=== PATIENT | male | born 1965 | race Caucasian/White ===

== ENCOUNTER → 2016-06-14 | Outpatient (CLI) | payer MEDICAID ==
[2016-06-14 11:15] LABS: CH 33.2; CHCM 35.1; HCT 48.6 % (39.0-53.0); HDW 2.93; HGB 16.3 gm/dL (13.0-17.5); MCH 31.9 pg (25.0-35.0); MCHC 33.6 g/dL (31.0-37.0); Mean Platelet Volume 8.5; RBC 5.11 m/uL (4.30-5.90); RDW 13.4 % (11.5-15.5); WBC 5.3 k/uL (3.8-10.6)
[2016-06-14 11:19] LABS: ALT 59 U/L (21-72); AST 30 U/L (17-59); Alkaline Phosphatase 72 U/L (38-126); Anion Gap 10 mmol/L; Blood Urea Nitrogen 14 mg/dL (9-20); Calcium 9.5 mg/dL (8.4-10.2); Carbon Dioxide 27 mmol/L (22-30); Chloride 106 mmol/L (98-107); Glucose 114 mg/dL (74-99); Non-African American GFR(MDRD) >60 (>60 ml/min/1.73 sqM); Potassium 4.4 mmol/L (3.5-5.1); Sodium 143 mmol/L (137-145); Total Bilirubin 0.6 mg/dL (0.2-1.3); Total Protein 7.5 g/dL (6.3-8.2)
[2016-06-14 13:22] LABS: Hemoglobin A1C 5.8 % (4.2-6.1)
== END | disposition home or self-care (01) ==
LOC: LABWHC1 10:44
PROVIDERS: ATTEND Family Medicine
DX: R00.1 Bradycardia, unspecified (principal); R53.83 Other fatigue
CPT/HCPCS: 36415; 80053; 83036; 83880; 84439; 84443; 84681; 85027

== ENCOUNTER → 2016-06-21 | Outpatient (CLI) | payer MEDICAID ==
[~2016-06-21] MED LIST: REGADENOSON 0.4 MG/5 ML SYRINGE IV NR; REGADENOSON 0.4 MG/5 ML SYRINGE IV ONE
--- NOTE | 2016-06-21 11:07 | NM ---
EXAMINATION TYPE: NM stress lexiscan cardiolite DATE OF EXAM: 06/21/2016 10:25 AM COMPARISON: NONE HISTORY: Precordial chest pain and abnormal EKG TECHNIQUE: After the intravenous administration of 10.34 mCi Tc 99m Sestamibi - Cardiolite resting S PECT images acquired 45 minutes post injection. The patient received 0.4mg Lexiscan, 27.2 mCi Tc 99m Sestamibi - Stress images obtained [address] injection FINDINGS: Review of stress and rest SPECT images demonstrates no distinct perfusion abnormality. Gated analysi s shows normal wall motion with an estimated left ventricular ejection fraction of 62 %. IMPRESSION: No scintigraphic evidence for reversible ischemia.
--- NOTE | 2016-06-21 12:27 | EST ---
DATE OF SERVICE: 06/21/2016 AGE: 50Y SEX: M HT: 6'2" WT: 250 lbs. Lexiscan Cardiolite Stress Test *Heart Rate Blood Pressure *Rest: 65 Rest: 129/86 * *Max. Achieved: 96 Maximum BP: 150/85 85% PMHR: 145 100% PMHR: 171 *METS: - INDICATIONS: Chest pain. MEDICATIONS: - The patient was given Lexiscan injection over the period of 15 seconds. Peak heart rate of 96 was achieved. Maximum blood pressure of 150/85 mmHg was noted. Resting EKG shows normal sinus rhythm with normal SC interval and QRS duration and normal ST-T waves. No ST segment depression suggestive of ischemia is noted. The results of the nuclear study will follow.
== END | disposition home or self-care (01) ==
LOC: RADNMMAIN 08:02
PROVIDERS: ATTEND Family Medicine
DX: R00.1 Bradycardia, unspecified (principal)
CPT/HCPCS: 93017; 78452; A9500; J2785

== ENCOUNTER → 2016-11-29 | Outpatient (CLI) | payer MEDICAID ==
[2016-11-29 08:30] LABS: Hemoglobin A1C 5.8 % (4.2-6.1)
== END | disposition home or self-care (01) ==
LOC: LABWHC1 06:48
PROVIDERS: ATTEND Family Medicine
DX: R73.03 Prediabetes (principal)
CPT/HCPCS: 36415; 83036

== ENCOUNTER → 2017-12-16 | Day surgery (SDC) | payer MEDICAID ==
[2017-12-15 12:08] VITALS: BMI 31.1
[~2017-12-16] MED LIST changes: +LACTATED RINGERS 1,000 ML IV SCH; +LIDOCAINE 1% 20 ML VIAL (10MG/ML) FOR IV START INTRADERMA PRN; +MIDAZOLAM 2 MG/2 ML VIAL ONE; +PROPOFOL 10 MG/ML 20 ML VIAL IV ONE; -REGADENOSON 0.4 MG/5 ML SYRINGE IV NR; -REGADENOSON 0.4 MG/5 ML SYRINGE IV ONE
[2017-12-16 08:10] VITALS: RESP 16; TEMP 97.9
--- NOTE | 2017-12-16 09:11 | P.PCN ---
Date of Procedure: 12/16/17 Procedure(s) Performed: BRIEF HISTORY: Patient is a 52-year-old pleasant white male, scheduled for an elective colonoscopy as a part of screening for colon neoplasia. PROCEDURE PERFORMED: Colonoscopy. PREOPERATIVE DIAGNOSIS: Screening for colon cancer. IV sedation per Anesthesia. PROCEDURE: After informed consent was obtained, the patient, was brought into the endoscopy unit. IV sedation was administered by Anesthesia under continuous monitoring. Digital rectal examination was normal. Initially the Olympus CF- 160 flexible video colonoscope was then inserted in the rectum, gradually advanced into the cecum without any difficulty. Careful examination was performed as the scope was gradually being withdrawn. Ileocecal valve and the appendiceal orifice were visualized and appeared normal. Prep was excellent. Mucosa of the cecum, ascending colon, transverse colon, descending colon, sigmoid colon, and rectum appeared normal. Retroflexion was performed in the rectum and no lesions were seen. The patient tolerated the procedure well. IMPRESSION: Normal-appearing colon from rectum to cecum with no evidence of colorectal neoplasia. RECOMMENDATIONS: Findings of this examination were discussed with the patient as well as his family. He was advised to have a repeat screening colonoscopy in 10 years.
[2017-12-16 09:22] VITALS: BP 123/78; PULSE 70
== END | disposition home or self-care (01) ==
LOC: ORWHC2ENDO 07:50
PROVIDERS: ATTEND Internal Medicine Gastroenterology
DX: Z12.11 Encounter for screening for malignant neoplasm of colon (principal); K21.9 Gastro-esophageal reflux disease without esophagitis; J44.9 Chronic obstructive pulmonary disease, unspecified; Z79.82 Long term (current) use of aspirin; Z79.899 Other long term (current) drug therapy; Z87.891 Personal history of nicotine dependence
CPT/HCPCS: 45378; J2250; J2704

== ENCOUNTER → 2020-01-14 | Outpatient (CLI) | payer MEDICAID ==
[2020-01-14 07:43] LABS: HCT 47.7 % (39.0-53.0); HGB 15.6 gm/dL (13.0-17.5); MCH 30.9 pg (25.0-35.0); MCHC 32.8 g/dL (31.0-37.0); MCV 94.4 fL (80.0-100.0); Mean Platelet Volume 8.3; Platelet Count 144 k/uL (150-450); RBC 5.05 m/uL (4.30-5.90); RDW 13.2 % (11.5-15.5); WBC 4.6 k/uL (3.8-10.6)
[2020-01-14 07:51] LABS: Appearance,Urine Clear (Clear); Bilirubin,Urine Negative (Negative); Blood,Urine Negative (Negative); Color,Urine Yellow; Glucose,Urine (UA) Negative (Negative); Ketones,Urine Negative (Negative); Leukocyte Esterase,Urine Negative (Negative); Nitrite,Urine Negative (Negative); Protein,Urine Negative (Negative); Specific Gravity,Urine 1.016 (1.001-1.035); Urobilinogen,Urine <2.0 mg/dL (<2.0)
[2020-01-14 10:09] LABS: African American GFR (CKD) 112.6 (60.0-200.0); Albumin 4.1 g/dL (3.80-4.90); Albumin/Globulin Ratio 2.05 (1.60-3.17); Anion Gap 6.6 mmol/L (4.00-12.00); BUN/Creat Ratio 17.78 Ratio (12.00-20.00); Calcium 9.2 mg/dL (8.7-10.3); Carbon Dioxide 30.4 mmol/L (21.6-31.8); Chol/HDL Ratio 4.12; LDL Cholesterol,Calculated 115.2 mg/dL (0.0-131.0); Non-African American GFR(CKD) 97.2 (60.0-200.0); Potassium 4.3 mmol/L (3.5-5.5); Total Bilirubin 0.5 mg/dL (0.2-1.2); Total Protein 6.1 g/dL (6.2-8.2); VLDL Calculation 18.8 mg/dL (5.00-40.00)
[2020-01-14 10:18] LABS: Prostate Specific Antigen 0.5 ng/mL (0.0-3.5)
== END | disposition home or self-care (01) ==
LOC: LABWHC1 07:13
PROVIDERS: ATTEND Family Medicine
DX: R06.00 Dyspnea, unspecified (principal); N52.9 Male erectile dysfunction, unspecified
CPT/HCPCS: 36415; 80053; 80061; 81003; 83036; 84153; 84439; 84443; 85027

== ENCOUNTER 2020-11-18 07:32 | Emergency (ER) | payer MEDICAID ==
[2020-11-18 07:46] VITALS: RESP 18
--- NOTE | 2020-11-18 08:33 | ED ---
Recheck HPI - General Chief Complaint: Recheck/Abnormal Lab/Rx Stated Complaint: fever, no appetite Time Seen by Provider: 11/18/20 07:56 Source: patient, RN notes reviewed Mode of arrival: ambulatory Limitations: no limitations - History of Present Illness Initial Comments: This is a 55-year-old male who presents with complaints of 2 days of headache a smoker's cough and fevers along with chills. He did hit the fall complement of [place] he is concerned he may have developed the delta variant. He does state he has a cough that is smoker's cough no overt phlegm no earaches or throat some clear rhinorrhea. Frontal headache he gets worse with cough and now is positional changes. - Related Data Home Medications Medication Instructions Recorded Confirmed Montelukast [Singulair] 10 mg PO HS 12/15/17 11/18/20 Omeprazole 20 mg PO HS 12/15/17 11/18/20 Tadalafil [Cialis] 5 mg PO HS 12/15/17 11/18/20 Zolpidem [Ambien] 5 mg PO HS 11/18/20 11/18/20 Previous Rx's Medication Instructions Recorded Amoxicillin/Potassium Clav 1 tab PO Q12HR 1 Days #20 tab 11/18/20 [Augmentin 875-125 Tablet] Ibuprofen 800 mg PO Q6HR PRN #20 tablet 11/18/20 Allergies Allergy/AdvReac Type Severity Reaction Status Date / Time No Known Allergies Allergy Verified 11/18/20 08:38 Review of Systems ROS Statement: Those systems with pertinent positive or pertinent negative responses have been documented in the HPI. ROS Other: All systems not noted in ROS Statement are negative. Past Medical History Past Medical History: COPD, GERD/Reflux Additional Past Medical History / Comment(s): SEASONAL ALLERGIES, bph History of Any Multi-Drug Resistant Organisms: None Reported Past Surgical History: Orthopedic Surgery Additional Past Surgical History / Comment(s): TITANIUM ERICA LT KNEE TO ANKLE Past Anesthesia/Blood Transfusion Reactions: No Reported Reaction Past Psychological History: No Psychological Hx Reported Smoking Status: Vaper Past Alcohol Use History: Occasional Past Drug Use History: Marijuana - Past Family History Mother Family Medical History: No Reported History General Exam - General Exam Comments Initial Comments: This is a well-developed well-nourished awake alert oriented 3 male Limitations: no limitations General appearance: alert, in no apparent distress Head exam: Present: atraumatic, normocephalic, normal inspection Eye exam: Present: normal appearance, PERRL, EOMI. Absent: scleral icterus, conjunctival injection, periorbital swelling ENT exam: Present: mucous membranes moist, TM's normal bilaterally, other (Boggy nasal mucosa with some mild hyperemia) Neck exam: Present: normal inspection, full ROM, other (No stridor JVD or bruits). Absent: tenderness, meningismus, lymphadenopathy Respiratory exam: Present: normal lung sounds bilaterally. Absent: respiratory distress, wheezes, rales, rhonchi, stridor Cardiovascular Exam: Present: normal rhythm, tachycardia, normal heart sounds. Absent: systolic murmur, diastolic murmur, rubs, gallop, clicks GI/Abdominal exam: Present: soft, normal bowel sounds. Absent: distended, tenderness, guarding, rebound, rigid Extremities exam: Present: normal inspection, full ROM, normal capillary refill. Absent: tenderness, pedal edema, joint swelling, calf tenderness Back exam: Present: normal inspection Neurological exam: Present: alert, oriented X3, CN II-XII intact Psychiatric exam: Present: normal affect, normal mood Skin exam: Present: warm, dry, intact, normal color. Absent: rash Course Vital Signs 11/18/20 11/18/20 11/18/20 07:42 08:43 08:51 Temperature 100.7 F H 102.4 F H Pulse Rate 113 H 109 H Respiratory 18 18 18 Rate Blood Pressure 157/104 149/87 O2 Sat by Pulse 92 L 95 Oximetry Medical Decision Making - Medical Decision Making I did discuss findings with the patient is negative for evidence a viral infections please see the report patient will be discharged the presentation is consistent with a - Lab Data Lab Results 11/18/20 Range/Units 08:48 Influenza Type A (PCR) Not Detected (Not Detectd) Influenza Type B (PCR) Not Detected (Not Detectd) RSV (PCR) Not Detected (Not Detectd) SARS-CoV-2 (PCR) Not Detected (Not Detectd) - Radiology Data Radiology results: report reviewed (Imaging reviewed no acute findings), image reviewed Disposition Clinical Impression: Acute sinusitis, Febrile illness, acute Disposition: HOME SELF-CARE Condition: Good Instructions (If sedation given, give patient instructions): Rhinosinusitis (ED), Fever in Adults (ED) Prescriptions: Amoxicillin/Potassium Clav [Augmentin 875-125 Tablet] 1 tab PO Q12HR 1 Days #20 tab Ibuprofen 800 mg PO Q6HR PRN #20 tablet PRN Reason: Pain Is patient prescribed a controlled substance at d/c from ED?: No Referrals: Heath Cardoso MD [Primary Care Provider] - 1-2 days
[2020-11-18] MEDS ORDERED: ACETAMINOPHEN TAB 500 MG TAB PO STA (08:45)
--- NOTE | 2020-11-18 08:46 | XR ---
EXAMINATION TYPE: XR chest 2V DATE OF EXAM: 11/18/2020 COMPARISON: 03/03/2017 HISTORY: Fever and cough TECHNIQUE: Frontal and lateral views of the chest are obtained. FINDINGS: Left upper lobe pulmonary nodule is unchanged. Lungs are otherwise clear. Cardiac silhouette is not enlarged. IMPRESSION: No acute cardiopulmonary process.
[2020-11-18 10:40] VITALS: BP 149/65; PULSE 91; TEMP 98.5
== END 2020-11-18 10:40 | disposition home or self-care (01) ==
LOC: EC 07:32
DX: J01.90 Acute sinusitis, unspecified (principal); J44.9 Chronic obstructive pulmonary disease, unspecified; K21.9 Gastro-esophageal reflux disease without esophagitis; F17.290 Nicotine dependence, other tobacco product, uncomplicated; F12.90 Cannabis use, unspecified, uncomplicated; Z20.822 Contact with and (suspected) exposure to COVID-19
CPT/HCPCS: 71046; 87636; 99284

== ENCOUNTER 2022-09-10 06:20 | Day surgery (SDC) | payer BC, MEDICAID ==
[~2022-09-10 06:20] MED LIST changes: +ACETAMINOPHEN TAB 500 MG TAB PO PRN; +DEXAMETHASONE SOD PHOSPHATE 4 MG/ML 1 ML VIAL IV ONE; +HEPARIN SODIUM,PORCINE/PF 5,000 UNIT/0.5 ML SYRINGE SQ PRN; +HYDROmorphone 0.5 MG/0.5 ML SYRINGE IVP PRN; +LIDOCAINE 1% (10MG/ML) FOR IV START INTRADERMA PRN; -LIDOCAINE 1% 20 ML VIAL (10MG/ML) FOR IV START INTRADERMA PRN; +MIDAZOLAM 2 MG/2 ML VIAL IV PRN; -MIDAZOLAM 2 MG/2 ML VIAL ONE; +ONDANSETRON 4 MG/2 ML VIAL IVP ONE; -PROPOFOL 10 MG/ML 20 ML VIAL IV ONE; +Pre Op ABX Message 1 EACH MISC MISCELLANE ONE
[2022-09-10 06:41] VITALS: RESP 16
[2022-09-10 06:49] LABS: Glucose,Whole Blood 122 mg/dL (70-110)
[2022-09-10] MEDS ORDERED: ONDANSETRON 4 MG/2 ML VIAL ONE (06:50)
[2022-09-10] MEDS ORDERED: MIDAZOLAM 2 MG/2 ML VIAL ONE (07:19)
[2022-09-10] MEDS ORDERED: fentaNYL (PF) 50 MCG/ML 2 ML AMP ONE (07:19)
[2022-09-10] MEDS ORDERED: KETOROLAC 15 MG/ML 1 ML VIAL ONE (07:19)
[2022-09-10] MEDS ORDERED: PROPOFOL 10 MG/ML 20 ML VIAL IV ONE (07:19)
[2022-09-10] MEDS ORDERED: SODIUM CHLORIDE 0.9% 100 ML BAG ONE (07:19)
[2022-09-10] MEDS ORDERED: LIDOCAINE 2% INJ 20 MG/ML (2 ML VIAL) ONE (07:19)
[2022-09-10] MEDS ORDERED: SODIUM CHLORIDE 0.9% 50 ML with ceFAZolin 2,000 MG IV ONE ×2 (07:23)
--- NOTE | 2022-09-10 07:23 | P.GSHP ---
History of Present Illness H&P Date: 09/10/22 Chief Complaint: Left shoulder lipoma 56-year-old male here for excision left shoulder lipomatous mass. Enlarging gradually over time. Mild soreness at times. No prior imaging. Past Medical History Past Medical History: COPD, Diabetes Mellitus, Eye Disorder, GERD/Reflux, Hyperlipidemia, Prostate Disorder, Sleep Apnea/CPAP/BIPAP Additional Past Medical History / Comment(s): SEASONAL ALLERGIES, bph, lipoma rt shoulder causing numbness to rue and achiness. cpap, blood clot to left eye causing scar tissue no peripheral vision. arthritis left leg History of Any Multi-Drug Resistant Organisms: None Reported Past Surgical History: Orthopedic Surgery Additional Past Surgical History / Comment(s): TITANIUM ERICA LT KNEE TO ANKLE, c olonoscopy Past Anesthesia/Blood Transfusion Reactions: No Reported Reaction Smoking Status: Vaper - Past Family History Mother Family Medical History: No Reported History Medications and Allergies Home Medications Medication Instructions Recorded Confirmed Type Montelukast [Singulair] 10 mg PO HS 12/15/17 09/08/22 History Omeprazole 20 mg PO HS 12/15/17 09/08/22 History tadalafiL [Cialis] 5 mg PO HS 12/15/17 09/10/22 History Ibuprofen 800 mg PO Q6HR PRN #20 tablet 11/18/20 09/08/22 Rx Atorvastatin [Lipitor] 20 mg PO HS 09/08/22 09/08/22 History Fexofenadine HCl [Tasia Allergy] 180 mg PO DAILY 09/08/22 09/08/22 History Finerenone [Kerendia] 10 mg PO DAILY 09/08/22 09/08/22 History Semaglutide [Rybelsus] 7 mg PO DAILY 09/08/22 09/08/22 History Temazepam [Restoril] 30 mg PO HS 09/08/22 09/08/22 History Vit C/E/Zn/Coppr/Lutein/Zeaxan 1 each PO BID 09/08/22 09/08/22 History [Preservision Areds 2 Softgel] Allergies Allergy/AdvReac Type Severity Reaction Status Date / Time No Known Allergies Allergy Verified 09/08/22 12:48 Surgical - Exam Vital Signs Temp Pulse Resp BP Pulse Ox 97.7 F 69 16 119/66 94 L 09/10/22 06:40 09/10/22 06:40 09/10/22 06:40 09/10/22 06:40 09/10/22 06:40 Physical exam: General: Well-developed, well-nourished HEENT: Normocephalic, sclerae nonicteric Abdomen: Nontender, nondistended Extremities: No edema, left arm anterior shoulder lipomatous mass measuring 7 x 9 cm Neuro: Alert and oriented Results - Labs Abnormal Lab Results - Last 24 Hours (Table) 09/10/22 Range/Units 06:47 POC Glucose (mg/dL) 122 H (70-110) mg/dL Assessment and Plan (1) Lipoma of left shoulder Narrative/Plan: We'll proceed with surgical excision left shoulder lipoma. Risks of bleeding, infection, scarring, numbness, seroma, recurrence reviewed. He understands and wishes to proceed. Current Visit: Yes Status: Acute Code(s): D17.22 - BENIGN LIPOMATOUS NEOPLASM OF SKIN, SUBCU OF LEFT ARM SNOMED Code(s): 364047348
[2022-09-10] MEDS ORDERED: BUPIVACAINE (PF) 0.25% 30 ML VIAL SQ ONE ×2 (07:47→08:01)
[2022-09-10] MEDS ORDERED: NALOXONE 0.4 MG/ML 1 ML VIAL IV PRN (08:13)
--- NOTE | 2022-09-10 08:18 | P.OP ---
Date of Procedure: 09/10/22 Procedure(s) Performed: PREOPERATIVE DIAGNOSIS: Left shoulder lipoma POSTOPERATIVE DIAGNOSIS: Same PROCEDURE: Excision left shoulder lipoma with intermediate closure SURGEON: Giacomo EBL: 10 mL ANESTHESIA: Gen. COMPLICATIONS: None OPERATIVE PROCEDURE: Patient placed on the operative table in the supine positi on. The left shoulder was prepped and draped sterilely. An oblique incision was made overlying the palpable mass. The subcutaneous tissues superficially were divided using electrocautery. We then identified a large lipomatous mass. This was multilobulated. This extended both down the arm several centimeters and towards the chest wall. This also had an extension heading posteriorly. With careful blunt dissection and electrocautery we were able to tease out the entirety of this lipomatous mass. This was approximately 9 x 11 cm in the orientation and it was in the body. When stretched out however this reached a maximum length of approximately 17 cm. This was passed off and sent to pathology. The area was irrigated no bleeding was seen. The area was localized with Marcaine. The subcutaneous tissues were closed using 3-0 Vicryl sutures. The skin was closed using a running 4-0 Monocryl suture. Skin glue and sterile dressings were applied. DISPOSITION: Stable to recovery room
[2022-09-10 08:21] VITALS: TEMP 97.2
[2022-09-10 09:32] VITALS: BP 108/70; PULSE 59
== END 2022-09-10 09:47 | disposition home or self-care (01) ==
LOC: OR 06:20
PROVIDERS: ATTEND Surgery
DX: D17.22 Benign lipomatous neoplasm of skin and subcutaneous tissue of left arm (principal); J44.9 Chronic obstructive pulmonary disease, unspecified; E11.9 Type 2 diabetes mellitus without complications; K21.9 Gastro-esophageal reflux disease without esophagitis; E78.5 Hyperlipidemia, unspecified; G47.33 Obstructive sleep apnea (adult) (pediatric); N40.0 Benign prostatic hyperplasia without lower urinary tract symptoms; Z99.89 Dependence on other enabling machines and devices; Z98.890 Other specified postprocedural states; Z79.899 Other long term (current) drug therapy
CPT/HCPCS: 11406; 12035; J2250; J1100; J2405; J0690; J3010; J1885; J2704; J1644; J2001; 88304; 88311